=== PATIENT | male | born 1970 | race Caucasian/White ===

== ENCOUNTER 2017-05-02 21:17 | Emergency (ER) | payer SELFPAY ==
[2017-05-02 21:40] VITALS: BP 144/92; PULSE 77; TEMP 98.3; BMI 35.5
--- NOTE | 2017-05-02 22:36 | PDOC ---
History of Present Illness - General History Source: Patient <Tai Pedraza - Last Filed: 05/03/17 00:00> - General History Source: Patient Exam Limitations: No Limitations - History of Present Illness Initial Comments: 05/02/17 22:46 The patient is a 46 year old male with significant past medical history of hypertension who presents to the ED for right ankle pain and swelling s/p injury 1 week ago. Patient reports he was at work a week ago when he hit his ankle and sustained pain and swelling to the area. States he had a previous injury to the right ankle last year. The patient denies fever, chills, cough, SOB, chest pain, and palpitations. The patient denies abdominal pain, nausea, vomiting, and diarrhea. Allergies: NKDA Social History: No alcohol, tobacco, or drug use reported. Past Surgical History: None reported PCP: None reported <Ольга Ríos - Last Filed: 05/03/17 00:03> - General Chief Complaint: Pain Stated Complaint: LEG PAIN Time Seen by Provider: 05/02/17 22:33 Past History - Past Medical History HTN: Yes - Psycho/Social/Smoking Cessation Hx Suicidal Ideation: No Smoking History: Never smoked Have you smoked in the past 12 months: No Information on smoking cessation initiated: No Hx Alcohol Use: No Drug/Substance Use Hx: No <Sophie Pedrazaan - Last Filed: 05/03/17 00:00> <Ольга Ríos - Last Filed: 05/03/17 00:03> - Past Medical History Allergies/Adverse Reactions: Allergies Allergy/AdvReac Type Severity Reaction Status Date / Time No Known Allergies Allergy Verified 05/02/17 21:41 Home Medications: Ambulatory Orders Ibuprofen 800 mg PO TID #30 tablet 05/03/17 Review of Systems - Review of Systems Able to Perform ROS?: Yes Comments:: 05/02/17 22:46 CONSTITUTIONAL: Absent: fever, no chills, no fatigue EYES: Absent: visual changes ENT: Absent: ear pain, no sore throat CARDIOVASCULAR: Absent: chest pain, no palpitations RESPIRATORY: Absent: cough, no SOB GI: Absent: abdominal pain, no nausea, no vomiting, no constipation, no diarrhea GENITOURINARY: Absent: dysuria, no frequency, no hematuria MUSCULOSKELETAL: +right ankle pain and swelling Absent: back pain, no myalgia SKIN: Absent: rash NEURO: Absent: headache <Ольга Ríos - Last Filed: 05/03/17 00:03> *Physical Exam - Vital Signs Last Vital Signs Temp Pulse Resp BP Pulse Ox 98.3 F 77 18 144/92 100 05/02/17 21:38 05/02/17 21:38 05/02/17 21:38 05/02/17 21:38 05/02/17 21:38 <Tai Pedraza - Last Filed: 05/03/17 00:00> - Vital Signs Last Vital Signs Temp Pulse Resp BP Pulse Ox 98.3 F 77 18 144/92 100 05/02/17 21:38 05/02/17 21:38 05/02/17 21:38 05/02/17 21:38 05/02/17 21:38 - Physical Exam Comments: 05/02/17 22:46 GENERAL: Well-appearing, well-nourished. No apparent distress. HEENT: Normocephalic, atraumatic. PERRL, EOM intact. CARDIOVASCULAR: Normal S1, S2. Regular rate and rhythm. PULMONARY: Clear to auscultation bilaterally. ABDOMEN: Soft, non-distended, non-tender. EXTREMITIES: Normal ROM in all four extremities. Minimal swelling of the right ankle, nontender, no deformity. SKIN: Warm, dry. No rash NEUROLOGICAL: No focal neurological deficits. <Ольга Ríos - Last Filed: 05/03/17 00:03> ED Treatment Course - RADIOLOGY Radiograph Interpretation: 05/03/17 00:03 EXAM: X-RAY RIGHT ANKLE AND FOOT Reviewed by Imaging product applications engineer: No acute fracture or dislocation. No radiopaque foreign body. Normal variant os peroneum incidentally noted. <Ольга Ríos - Last Filed: 05/03/17 00:03> Medical Decision Making - Medical Decision Making 05/03/17 00:02 Dr. Pedraza: The scribe's documentation has been prepared under my direction and personally reviewed by me in its entirery. I confirm that the note above accurately reflects all work, treatment, procedures, and medical decision making performed by me. <Tai Pedraza - Last Filed: 05/03/17 00:00> *DC/Admit/Observation/Transfer - Discharge Dispostion Admit: No <Tai Pedraza - Last Filed: 05/03/17 00:00> - Attestations Scribe Attestion: 05/02/17 22:46 Documentation prepared by Ольга Ríos, acting as medical surgical tech for Tai Pedraza MD/DO. <Ольга Ríos - Last Filed: 05/03/17 00:03> Diagnosis at time of Disposition: Moderate right ankle sprain Qualifiers: Encounter type: initial encounter Qualified Code(s): S93.401A - Sprain of unspecified ligament of right ankle, initial encounter - Discharge Dispostion Disposition: HOME - Prescriptions Prescriptions: Ibuprofen 800 mg PO TID #30 tablet - Referrals Referrals: Solo Cohen MD [Staff Physician] - - Patient Instructions Printed Discharge Instructions: DI for Ankle Sprain Print Language: ITALIAN
[2017-05-02] MEDS ORDERED: IBUPROFEN 400 MG TABLET (FP) PO ONE ×2 (22:37→22:46)
== END 2017-05-03 00:17 | disposition home or self-care (01) ==
LOC: SUPCPDRO 21:17 → JER 21:17
DX: S93.401A Sprain of unspecified ligament of right ankle, initial encounter (principal); W22.8XXA Striking against or struck by other objects, initial encounter; Y93.89 Activity, other specified; Y92.89 Other specified places as the place of occurrence of the external cause; Y99.0 Civilian activity done for income or pay
CPT/HCPCS: 73610-TC-RT; 73630-TC-RT; 99282-25